=== PATIENT | male | born 2000 | race Hispanic/Latino ===

== ENCOUNTER 2024-05-14 21:36 | Emergency (ER) | payer OTHER, SELFPAY ==
[2024-05-14 21:47] VITALS: BP 114/66; PULSE 76; RESP 14; TEMP 36.6; O2SAT 97; BMI 28.7
--- NOTE | 2024-05-14 23:10 | ED_ITS ---
HPI - General Adult General Chief complaint: Environmental Exposure Stated complaint: skin contact and ingestion of jet fuel Time Seen by Provider: 05/14/24 22:59 Source: patient Mode of arrival: Ambulatory History of Present Illness HPI narrative: 23-year-old male presents for evaluation after jet feel exposure. Around 7:00 p.m. the patient was working and got several drops of fluid down his arm and then a ?small swallow? of jet feel in his mouth. 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 Prior to arrival patient complaint mild nausea and so he was told to come to the ER for general evaluation. Patient states he feels otherwise fine at this time Related Data Previous Rx's Medication Instructions Recorded ondansetron 4 mg disintegrating 4 mg PO Q8H PRN nausea and 05/14/24 tablet vomiting #30 tabs Allergies Allergy/AdvReac Type Severity Reaction Status Date / Time No Known Drug Allergies Allergy Verified 05/14/24 21:46 Patient History Social History Smoking Status: Former smoker Smoking Status: Former smoker tobacco type: cigarettes, pipe and vaping alcohol intake frequency: holidays/special occasions only Alcohol type: beer, wine and hard liquor Substance Use Type: does not use Exam Initial Vital Signs Initial Vital Signs: Vital Signs Temperature 97.8 F 05/14/24 21:47 Pulse Rate 76 05/14/24 21:47 Respiratory Rate 14 05/14/24 21:47 Blood Pressure 114/66 05/14/24 21:47 Pulse Oximetry 97 05/14/24 21:47 Oxygen Delivery Method Room Air 05/14/24 21:47 Const: Awake, alert, no acute distress, nontoxic appearing Eyes: PERRL, EOMI, sclera clear Cardiac: regular rate, regular rhythm RESP: unlabored, no wheezing GI: Soft, nontender, nondistended Skin: Warm, Dry, intact, no rashes Neuro: AO x3, CN II-XII grossly intact, moves all extremities Course Orders Ordered: Discontinued Medications Ondansetron HCl (Ondansetron 4 Mg Odt) 4 mg SL NOW ONE Stop: 05/14/24 23:11 Last Admin: 05/14/24 23:16 Dose: 4 mg Documented By: SCOTT Vital Signs Vital signs: Vital Signs - 8 hr 05/14/24 21:47 Temperature 97.8 F Pulse Rate 76 Respiratory Rate 14 Blood Pressure 114/66 Pulse Oximetry 97 Oxygen Delivery Method Room Air Medical Decision Making [facility] Narrative Medical decision making narrative: Patient presenting for general evaluation after jet fuel exposure. He has no rashes, abdomen is soft, eyes are clear with no evidence irritation or injection. Offered patient is sublingual Zofran, he accepted. Patient states he feels otherwise fine and is here following orders to be evaluated. Discharge Plan Departure Patient Disposition: Home Clinical Impression: Environmental exposure Instructions: General Wellness (Alternative Therapy) Activity Restrictions/Additional Instructions: Your exam today is reassuring. Zofran has been sent to the [facility] in [facility] or if you feel nauseous in the future. Prescriptions: New ondansetron 4 mg tablet,disintegrating 4 mg PO Q8H PRN (Reason: nausea and vomiting) Qty: 30 0RF Referrals: ProviderPriyanka [Primary Care Provider] - Stand Alone Forms: Patient Portal/API, Work Release Note
[2024-05-14] MEDS: ONDANSETRON 4 MG ODT SL (23:16)
[2024-05-14 23:21] VITALS: BP 121/83; PULSE 65; RESP 15; O2SAT 98
== END 2024-05-14 23:21 | disposition home or self-care (01) ==
PROVIDERS: Emergency Provider Emergency Medicine
DX: Z57.5 Occupational exposure to toxic agents in other industries (principal)
CPT/HCPCS: 99283